=== PATIENT | male | born 2000 | race Caucasian/White ===

== ENCOUNTER 2023-05-09 15:24 | Emergency (ER) | payer MEDICAID ==
[~2023-05-09] VITALS: Ht 188 cm; Wt 61.5 kg
[2023-05-09 15:34] VITALS: O2SAT 100
[2023-05-09] MEDS: KETOROLAC 15MG/ML VIAL IM ONE (15:55)
[2023-05-09] MEDS ORDERED: NAPR-1176 MT (16:30)
[2023-05-09 17:15] VITALS: BP 122/87; PULSE 68; RESP 18; TEMP 98.7
== END 2023-05-09 17:17 | disposition home or self-care (01) ==
LOC: ER 15:24
DX: M25.531 Pain in right wrist (principal)
CPT/HCPCS: 99284; 73110; 73130; 29125; J1885

== ENCOUNTER 2024-09-04 14:25 | Emergency (ER) | payer MEDICAID, OTHER ==
[~2024-09-04] VITALS: Ht 188 cm; Wt 66.0 kg
[~2024-09-04 14:25] MED LIST: NAPR-1176 MT
[2024-09-04 14:33] VITALS: O2SAT 100
[2024-09-04] MEDS ORDERED: SULF1TAB48 MT (15:12)
[2024-09-04 15:57] VITALS: BP 129/77; PULSE 64; RESP 18; TEMP 36.9; O2SAT 100
== END 2024-09-04 16:00 | disposition home or self-care (01) ==
LOC: ER 14:45
DX: M79.89 Other specified soft tissue disorders (principal)
CPT/HCPCS: 99283